=== PATIENT | female | born 1955 | race Two or more races ===

== ENCOUNTER 2017-03-30 14:31 | Inpatient (IN) | payer OTHER ==
[~2017-03-30] VITALS: Ht 170.2 cm; Wt 68.5 kg
[2017-03-30 16:45] VITALS: BP 146/108
--- NOTE | 2017-03-30 16:45 | NUR ---
GPS ADMISSION NOTES PATIENT DIRECT ADMIT FROM [facility] ACUTE DETOX DX OF GRAVELY DISABLE, HALLUCINATING, AND 5150 HOLD. ON 5150 HOLD PATIENT HALLUCINATING, CONFUSED, UNABLE TO CARE OF SELF.ON FACE TO FACE ASSESSMENT PATIENT A/O X3, NO RESPIRATORY DISTRESS, REDIRECTABLE, PATIENT DENIED SI/HI AT THIS TIME. V/S TAKEN T-97.9, P-98,R-19, BP 146/100, O2-100 ROOM AIR. SKIN ASSESSMENT DONE, SKIN CLEAR, PT AMBULATORY SELF CARE, CONTINENT. MRSA OF SWAB NARES TAKEN. PATIENT SIGN PAPERWORK. PATIENTS RIGHT BOOK GIVEN AND EXPLAINED TO. BELONGING AND CONTRABAND CHECKED. DR PEDERSEN, AND DR BELL AWARE OF NEW PATIENT, AND NEW MEDICATION. CONTINUED MONITORING.
[2017-03-30] MEDS ORDERED: TRAZ-147 PO (17:34)
[2017-03-30] MEDS ORDERED: BENZ2TAB7 PO (17:34)
[2017-03-30] MEDS ORDERED: AMYL1CAP58 PO (17:34)
[2017-03-30] MEDS ORDERED: LIDO30AD10 TP (17:34)
--- NOTE | 2017-03-30 18:51 | NUR ---
GPS RN NOTES/ ADMINISTERED VISTARIL 25 MG PO PRN FOR ANXIETY, PER PATIENT REQUEST, V/S TAKEN BP 145/97, P-92 CONTINUED MONITORING.
[2017-03-30 20:02] VITALS: BP 126/59
[2017-03-31 06:43] LABS: BILIRUBIN,TOTAL 0.3 mg/dL (0.2-1.0); CALCIUM, SERUM 9.4 mg/dL (8.5-10.1); CREATININE 0.9 mg/dL (0.6-1.3); POTASSIUM 4.7 mmol/L (3.5-5.1); TOTAL PROTEIN, SERUM 5.7 g/dL (6.4-8.2)
[2017-03-31] MEDS ORDERED: DICL30AD TP (06:54)
[2017-03-31] MEDS ORDERED: CHOL200026 PO (06:54)
[2017-03-31] MEDS ORDERED: DICL100G3 TP (06:54)
[2017-03-31 08:00] VITALS: BP 128/68
[2017-03-31 09:43] LABS: THYROID STIMULATING HORMONE 1.345 uIU/mL (0.358-3.74)
--- NOTE | 2017-03-31 12:09 | NUR ---
ORCHID WORKER-NOTES DR. BELL SEEN THE PATIENT WITH VERBAL ORDER OF FT4,TSH AND ULTRASOUND ON TH NECK. NOTED AND CARRIED OUT.
--- NOTE | 2017-03-31 15:01 | NUR ---
Initial Discharge Note: Per patient, she lives alone in a cottage [address] [address]. Per chart, pts address [address] [address] ([phone]). parks and recreation worker will contact patient's sister/DPOA ([phone])/ ([phone]) to confirm patient's address and living situation. parks and recreation worker will help form a safe and proper discharge.
[2017-03-31 15:58] VITALS: BP 137/80
[2017-03-31 19:45] VITALS: BP 140/84
[2017-04-01 06:33] LABS: BASOPHILS % (AUTO) 0.3 % (0.0-2.0); EOSINOPHILS # (AUTO) 0.2 /CMM (0.0-0.7); EOSINOPHILS % (AUTO) 4.1 % (0.0-6.0); HEMATOCRIT 29 % (33-45); HEMOGLOBIN 9.8 g/dL (11.5-14.8); LYMPHOCYTES # (AUTO) 1.3 /CMM (0.8-4.8); LYMPHOCYTES % (AUTO) 28.4 % (20.0-44.0); MEAN CORPUSCULAR HEMOGLOBIN 36 PG (26.0-33.0); MEAN CORPUSCULAR HGB CONC 34 g/dl (31.0-36.0); MEAN CORPUSCULAR VOLUME 106 fL (82-100); MONOCYTES # (AUTO) 0.6 /CMM (0.1-1.30); MONOCYTES % (AUTO) 12.7 % (2.0-12.0); NEUTROPHILS # (AUTO) 2.5 /CMM (1.8-8.9); NEUTROPHILS % (AUTO) 54.5 % (43.0-81.0); PLATELET COUNT (AUTO) 204 /CMM (150-450); RDW COEFFICIENT OF VARIATION 16.6 (11.5-15.0); RED BLOOD CELL COUNT(AUTO) 2.72 MIL/uL (4.0-5.2); WHITE BLOOD COUNT (AUTO) 4.7 K/uL (4.3-11.0)
[2017-04-01 06:52] LABS: CHOLESTEROL 184 mg/dL (<200); HDL CHOLESTEROL 106 mg/dL (40-60); LDL 76 mg/dL (0-99); TRIGLYCERIDES 53 mg/dL (30-150)
[2017-04-01 06:53] LABS: CALCIUM, SERUM 9.5 mg/dL (8.5-10.1); MAGNESIUM 2.1 mg/dL (1.8-2.4); PHOSPHORUS 4.1 mg/dL (2.5-4.9); POTASSIUM 5.2 mmol/L (3.5-5.1)
[2017-04-01 07:18] LABS: EOSINOPHILS % (MANUAL) 6 % (0-4); LYMPHOCYTES % (MANUAL) 23 % (16-48); MONOCYTES % (MANUAL) 10 % (0-11.0); NEUTROPHILS % (MANUAL) 61 (42-76)
[2017-04-01 08:00] VITALS: BP 105/77
--- NOTE | 2017-04-01 12:17 | NUR ---
animal control licensing worker spoke to patient's sister/DPMAGALY Ryan ([phone])/ ([phone]) regarding placement. Per Mi, her priority is getting patient into a 30 day rehab program, However she stated that if that didn't work out she would set up the patient in a hotel until she is able to find her a studio apartment. animal control licensing worker will follow-up.
--- NOTE | 2017-04-01 15:45 | NUR ---
FARIBA faxed referral packet to [facility]- 5150 hold, medication list, face sheet, Medical and Psych H&P, and progress notes-([address], [place] [address]- phone: FAX: [phone]). SW will follow up. FARIBA faxed referral packet to [facility] -5150 hold, medication list, face sheet, Medical and Psych H&P, and progress notes-([address] [place] [address] ). SW will follow up.
[2017-04-01 16:00] VITALS: BP 131/85
--- NOTE | 2017-04-01 17:21 | NUR ---
STOOL COLLECTED FOR OCCULT BLOOD DONE.
--- NOTE | 2017-04-01 18:47 | NUR ---
GPS RN: CLOSING NOTE PT A/OX3-4. TOOK ALL MEDICATIONS ON TIME. NO ADVERSE REACTIONS NOTED. TYLENOL ADMINISTERED FOR BL FEET PAIN OF 3 OUT OF 10. REASSESSED PAIN SCALE AND PAIN REDUCED TO 1 OUT OF 10. NO N/V NOTED. AMBULATORY AND SELF CARE WITH ADLS. NEW ORDERS FOR OCCULT STOOL (COLLECTED), AND THYROGLOBULIN DUE TO L SIDED NECK MASS AROUND THYROID. NO DISTRESS NOTED. PARTICIPATED IN ACTIVITIES. RESTING COMFORTABLY IN BED.
[2017-04-01 19:41] VITALS: BP 129/85
[2017-04-02 06:54] LABS: IRON, SERUM 106 ug/dl (50-175); TOTAL IRON BINDING CAPACITY 283 ug/dl (250-450)
[2017-04-02 06:55] LABS: FERRITIN 202 ng/mL (8-388)
[2017-04-02 07:10] LABS: CALCIUM, SERUM 9.5 mg/dL (8.5-10.1); CREATININE 1.2 mg/dL (0.6-1.3); POTASSIUM 4.3 mmol/L (3.5-5.1)
[2017-04-02 08:00] VITALS: BP 124/64
--- NOTE | 2017-04-02 14:56 | NUR ---
household worker spoke to patient's sister/SHERMAN Rogersgh Shelby ([phone])/ ([phone]) who confirmed that patient can stay with her while she helps her look for placement. Sister's address [address] [place] [address].
[2017-04-02 16:09] VITALS: BP 122/76
--- NOTE | 2017-04-02 17:06 | NUR ---
RN NOTES DENIES ANY SUICIDAL THOUGHTS AT THIS TIME, PER PATIENT "NOT AT ALL, I JUST SPOKE TO MY FAMILY." WILL CONTINUE TO MONITOR.
[2017-04-02 20:00] VITALS: BP 109/72
[2017-04-03 06:20] LABS: BASOPHILS % (AUTO) 0.4 % (0.0-2.0); EOSINOPHILS # (AUTO) 0.2 /CMM (0.0-0.7); EOSINOPHILS % (AUTO) 2.8 % (0.0-6.0); HEMATOCRIT 30 % (33-45); LYMPHOCYTES # (AUTO) 1.1 /CMM (0.8-4.8); LYMPHOCYTES % (AUTO) 18.6 % (20.0-44.0); MEAN CORPUSCULAR HEMOGLOBIN 35 PG (26.0-33.0); MEAN CORPUSCULAR HGB CONC 33 g/dl (31.0-36.0); MEAN CORPUSCULAR VOLUME 104 fL (82-100); MONOCYTES # (AUTO) 0.9 /CMM (0.1-1.30); MONOCYTES % (AUTO) 15.3 % (2.0-12.0); NEUTROPHILS # (AUTO) 3.7 /CMM (1.8-8.9); NEUTROPHILS % (AUTO) 62.9 % (43.0-81.0); PLATELET COUNT (AUTO) 237 /CMM (150-450); RED BLOOD CELL COUNT(AUTO) 2.87 MIL/uL (4.0-5.2); WHITE BLOOD COUNT (AUTO) 5.9 K/uL (4.3-11.0)
[2017-04-03 06:44] LABS: RETICULOCYTE COUNT 1.5 % (0.6-2.5)
[2017-04-03 08:11] VITALS: BP 101/70
[2017-04-03 09:22] LABS: EOSINOPHILS % (MANUAL) 6 % (0-4); LYMPHOCYTES % (MANUAL) 14 % (16-48); MONOCYTES % (MANUAL) 9 % (0-11.0); NEUTROPHILS % (MANUAL) 71 (42-76)
--- NOTE | 2017-04-03 11:06 | NUR ---
certified social workers in health care [facility] with updated clinical for Amy Everett ([phone]) family service caseworker for [employer] requesting one more day. certified social workers in health care will follow-up.
--- NOTE | 2017-04-03 14:17 | NUR ---
ADMINISTERED TYLENOL 650MG PO PER PATIENT REQUEST FOR C/O OF HEADACHE 12/06
--- NOTE | 2017-04-03 15:38 | NUR ---
Discharge Note: Patient is scheduled to be discharged tomorrow. Patient will be discharged home [address] [place] [address]. Via [employer]. Patient's sister/SHERMAN Ryan ([phone])/ ([phone]) has been notified. Patient and patient's sister are agreeable with the discharge plan. Patient's mood and affect are appropriate. Patient denies suicidal and homicidal ideations. Patient was referred to [facility] [id number] [place] [address] ([phone]) and patient agreed to follow-up with a psychiatrist within 30 days. Patient was also referred to [facility] PHP/IOP program ([phone]) [address] [facility]. [facility] [place] [address]. Patient was referred [facility] [address] [address] ([phone]) and has an intake appointment scheduled for 04/06/17 at 2:00PM. Patient was also provided with a list of resources provided by her insurance for in [facility] mental health facilities. Facilitated info to IDT team who are in agreement with discharge arrangement. The multidisciplinary exitcare form was done, printed, signed, and given to the patient.
[2017-04-03 16:00] VITALS: BP 123/73
[2017-04-03 20:00] VITALS: BP 117/73
[2017-04-04 08:00] VITALS: BP 133/85
--- NOTE | 2017-04-04 08:14 | NUR ---
DR. PEDERSEN GAVE AN ORDER TO D/C HOLD AND D/C HOME. PT. WITHOUT DISTRESS, DENIES SUICIDAL AND HOMICIDAL AND TO FOLLOW UP WITH PSYCH AND MEDICAL DOCTORS.
--- NOTE | 2017-04-04 08:17 | NUR ---
CALLED [facility] UP AT [phone] AND NOTIFIED THAT PT. WILL BE DISCHARGE HOME TODAY AND AGREED.
[2017-04-04 10:23] LABS: IMMUNOGLOBULIN A, SERUM 121 mg/dL (87-352); IMMUNOGLOBULIN G, SERUM 618 mg/dL (700-1600); IMMUNOGLOBULIN M, SERUM 204 mg/dL (26-217)
--- NOTE | 2017-04-04 11:30 | NUR ---
PATIENT DISCHARGED TO SISTER'S HOME (SEE NOTES) AT [address] [place] [address]. PER , SISTER WILL BE AT HOME TO WAIT FOR THE PATIENT WHEN PT. GET'S DISCHARGED. PATIENT'S CONDITION IS STABLE FOR DISCHARGE, VS STABLE. PATIENT DENIES ANY SI/HI/AVH AT THE TIME OF DISCHARGE. ALL BELONGINGS RETURNED TO THE PATIENT, PROPERTY MANAGEMENT FORM SIGNED. PATIENT PROVIDED WITH PRESCRIPTION FOR PSYCHIATRIC MEDICATIONS AND STATES HAS ALL OTHER MEDS AT HOME. PATIENT'S SISTER /SHERMAN UP HAS BEEN NOTIFIED BY THE CHARGE NURSE LESTER. PATIENT LEFT THE UNIT ACCOMPANIED BY THE COUNTER TACKER TOÑO AND STAFF.
[2017-04-06 07:07] LABS: *SPE A/G RATIO 1.4 (0.7-1.7); *SPE ALBUMIN 3.6 g/dL (2.9-4.4); *SPE ALPHA-1-GLOBULIN 0.3 g/dL (0.0-0.4); *SPE ALPHA-2-GLOBULIN 0.6 g/dL (0.4-1.0); *SPE BETA GLOBULIN 0.8 g/dL (0.7-1.3); *SPE GLOBULIN, TOTAL 2.5 g/dL (2.2-3.9); *SPE M-SPIKE Not Observed g/dL (Not Observed); *SPE PROTEIN TOTAL 6.1 g/dL (6.0-8.5); *SPEGAMMA GLOBULIN 0.8 g/dL (0.4-1.8)
== END 2017-04-04 11:30 | disposition home or self-care (01) | DRG 885 ==
LOC: EDBD → GPS 16:13
PROVIDERS: ADMIT Psychiatry & Neurology Psychiatry; ATTEND Psychiatry & Neurology Psychiatry
DX: F20.0 Paranoid schizophrenia (principal); F11.20 Opioid dependence, uncomplicated; F29 Unspecified psychosis not due to a substance or known physiological condition; Z59.0 Homelessness; E87.5 Hyperkalemia; I10 Essential (primary) hypertension; E04.1 Nontoxic single thyroid nodule; F41.9 Anxiety disorder, unspecified; Z79.899 Other long term (current) drug therapy; Z81.8 Family history of other mental and behavioral disorders; D53.9 Nutritional anemia, unspecified; E53.8 Deficiency of other specified B group vitamins; Z73.6 Limitation of activities due to disability
CPT/HCPCS: 36415; 76536-TC; 80048-TC; 80053-TC; 80061-TC; 82272-TC; 82728-TC; 82746; 82784; 83540-TC; 83735-TC; 84100-TC; 84155; 84165; 84439-TC; 84443-TC; 85025-TC; 85045-TC; 86334; 87081-TC; Q0177